=== PATIENT | male | born 1960 | race African-American/Black ===

== ENCOUNTER → 2017-03-29 | Day surgery (SDC) | payer OTHER, MEDICAID ==
[~2017-03-29] VITALS: Ht 167.6 cm; Wt 77.1 kg
[~2017-03-29] MED LIST: ASPI81TA27 PO; ATEN50TA PO; CANA300T OR; LISI-646 PO; NIF10C PO
== END | disposition home or self-care (01) ==
LOC: CATH 08:04
PROVIDERS: ATTEND Internal Medicine
DX: I25.10 Atherosclerotic heart disease of native coronary artery without angina pectoris (principal); Z53.8 Procedure and treatment not carried out for other reasons